=== PATIENT | female | born 1960 | race Caucasian/White ===

== ENCOUNTER 2021-04-06 09:42 | Outpatient (CLI) | payer OTHER, SELFPAY ==
--- NOTE | 2021-04-06 09:48 | MM_ITS ---
WS: [id number] BILATERAL DIGITAL SCREENING MAMMOGRAPHY WITH CAD CLINICAL INFORMATION: SCREENING HISTORY: Screening mammogram. No current complaints. COMPARISON: August 18, 2019 TECHNIQUE: Bilateral CC and MLO views. FINDINGS: Scattered fibroglandular densities bilaterally. Stable clustered and punctate calcifications right br east. No suspicious focal mass, asymmetry, calcifications, or architectural distortion. No evidence o f malignancy. MM/[id number] IMPRESSION: BI-RADS: 2-Benign FOLLOW UP: 1 Year Follow-up Recommend return to annual screening mammography.
== END 2021-04-06 09:43 | disposition home or self-care (01) ==
LOC: RADSHAW 09:46
PROVIDERS: PCP Family Medicine; Visit Provider Family Medicine
DX: Z12.31 Encounter for screening mammogram for malignant neoplasm of breast (principal)
CPT/HCPCS: 77067

== ENCOUNTER 2023-02-13 13:19 | Outpatient (CLI) | payer OTHER, SELFPAY ==
--- NOTE | 2023-02-13 13:31 | MM_ITS ---
WS: [id number] BILATERAL SCREENING DIGITAL TOMOSYNTHESIS MAMMOGRAM WITH CAD HISTORY: Screening COMPARISON: 04/06/2021 and 05/18/2019 Bilateral CC and MLO views with tomosynthesis and synthetic mammography submitted. Computer aided det ection analyzed. Breast composition: There are scattered areas of fibroglandular density. No suspicious masses, microc alcifications or architectural distortion. Calcifications within each breast. MM/[id number] IMPRESSION: BI-RADS: 2-Benign FOLLOW UP: 1 Year Follow-up
== END 2023-02-13 13:20 | disposition home or self-care (01) ==
LOC: RAD 13:19
PROVIDERS: PCP Family Medicine; Visit Provider Family Medicine
DX: Z12.31 Encounter for screening mammogram for malignant neoplasm of breast (principal)
CPT/HCPCS: 77063; 77067

== ENCOUNTER 2024-02-06 08:15 | Day surgery (SDC) | payer OTHER, SELFPAY ==
--- NOTE | 2024-02-06 08:11 | W.PM.OPSFHP ---
Same Day Surgery H&P Indication for Procedure/HPI DATE OF PROCEDURE: February 06, 2024 CHIEF COMPLAINT/INDICATIONFOR SURGICAL PROCEDURE: need for screening colonoscopy PREOP DIAGNOSIS: history of colon polyps PLANNED PROCEDURE: Operation Date: 02/06/24 09:25 [place] Procedures p [id number] Colonoscopy Z12.11(Not Applicable) - Hernan Ferrari MD Medications/Allergies* Home Medications Medication Instructions Recorded Confirmed Type citalopram 10 mg tablet (Celexa) 10 mg PO DAILY 04/16/21 02/04/24 History lisinopril 20 mg tablet 20 mg PO DAILY 04/16/21 02/04/24 History meloxicam 15 mg tablet (Mobic) 15 mg PO DAILY 04/16/21 02/04/24 History gabapentin 100 mg capsule 100 mg PO DAILY 08/06/23 02/04/24 History Allergies/Adverse Reactions Allergy/AdvReac Type Severity Reaction Status Date / Time Sulfa (Sulfonamide Allergy ALGY-Rash Verified 08/06/23 11:05 Antibiotics) Pertinent History/Comorbid Conditions* Family History (Updated 08/06/23 @ 11:12 by LACY Méndez) Lupus Grandmother Heart disease Father Cancer Grandmother colon cancer Grandfather Parkinson disease Grandmother Stroke Father Social History Smoking and tobacco/nicotine status: never used tobacco/nicotine Alcohol intake: current Alcohol intake frequency: holidays/special occasions only Pertinent Exam Findings alert, oriented x 3, clear to auscultation bilaterally and regular rate & rhythm Recommendations Surgery/Procedure today Coding Level of Care Code Acute Code for Chg Fwd
[2024-02-06 08:22] VITALS: BP 144/103; PULSE 116; RESP 18; TEMP 36.5; O2SAT 97
--- NOTE | 2024-02-06 08:49 | P.ANESASSM_ITS ---
Pre-Anesthetic Assessment Height/Weight: Height 1.63 m Weight 83.915 kg Temp Pulse Resp BP Pulse Ox O2 Del Method 97.7 F 116 H 18 144/103 97 Room Air 02/06/24 08:22 02/06/24 08:22 02/06/24 08:22 02/06/24 08:22 02/06/24 08:22 02/06/24 08:22 Preop Diagnosis: history of colon polyps Operation Date: 02/06/24 09:25 [place]posed Procedures p [id number] Colonoscopy Z12.11(Not Applicable) - Hernan Ferrari MD Familial anesthetic complications: None Was Beta José Miguel taken within 24 hours: N/A Was Clonidine taken within 24 hours: N/A Last intake: Intake Last Liquid Date 02/05/24 Last Liquid Time 23:15 Last Solid Date 02/04/24 Last Solid Time 18:30 Social No alcohol and No tobacco Exam alert, oriented x 3, clear to auscultation bilaterally and regular rate & rhythm CV/HEM Hypertension Anesthetic Plan ASA status: 2 Anesthesia: MAC Risk of > 500 ml blood loss (7ml/kg in children): No Medications/Allergies Home Medications Medication Instructions Recorded Confirmed Last Taken Type citalopram 10 mg tablet (Celexa) 10 mg PO DAILY 04/16/21 02/04/24 02/04/24 History lisinopril 20 mg tablet 20 mg PO DAILY 04/16/21 02/04/24 02/04/24 History meloxicam 15 mg tablet (Mobic) 15 mg PO DAILY 04/16/21 02/04/24 02/04/24 History gabapentin 100 mg capsule 100 mg PO DAILY 08/06/23 02/04/24 02/04/24 History Allergies Allergy/AdvReac Type Severity Reaction Status Date / Time Sulfa (Sulfonamide Allergy ALGY-Rash Verified 08/06/23 11:05 Antibiotics) [facility] Anesthesia Family History (Updated 08/06/23 @ 11:12 by LACY Méndez) Grandmother Cancer colon cancer Parkinson disease Lupus Father Stroke Heart disease Grandfather Cancer Social History (Updated 08/06/23 @ 11:12 by LACY Méndez) Smoking and tobacco/nicotine status: never used tobacco/nicotine Alcohol intake: current Alcohol intake frequency: holidays/special occasions only Data Anesthesia Cardiac Studies: No Data to Display
[2024-02-06] MEDS: sodium chloride 0.9% 1,000 ML 30 ML IV (08:50)
[2024-02-06 09:42] VITALS: BP 126/67; PULSE 80; RESP 18; TEMP 36.7; O2SAT 98
[2024-02-06 09:52] VITALS: BP 124/67; PULSE 81; RESP 18; TEMP 36.6; O2SAT 98
--- NOTE | 2024-02-06 10:00 | ANE.PACU2 ---
Inpatient post-anesthesia follow up: Airway intact: Yes Vital signs: Temperature 98 F Pulse Rate 81 Respiratory Rate 18 Blood Pressure 124/67 Pulse Oximetry 98 Oxygen Delivery Me thod Room Air Oxygen Flow Rate Fraction of Inspir ed Oxygen Hydration adequate: Yes Nausea and vomiting: No Pain level: 1 Mental status: Baseline
== END 2024-02-06 10:04 | disposition home or self-care (01) ==
PROVIDERS: PCP Family Medicine; Visit Provider Surgery
PROC: 0DJD8ZZ Inspection of Lower Intestinal Tract, Via Natural or Artificial Opening Endoscopic (ICD-10-PCS; CPT 45378; principal; 2024-02-06 09:25)
DX: Z12.11 Encounter for screening for malignant neoplasm of colon (principal); Z86.010 Personal history of colon polyps; I10 Essential (primary) hypertension
CPT/HCPCS: 45378; J2704; J7030